=== PATIENT | male | born 1990 | race Caucasian/White ===

== ENCOUNTER 2018-04-03 02:35 | Emergency (ER) | payer OTHER ==
[2018-04-03 02:40] VITALS: BP 127/77
[2018-04-03] MEDS ORDERED: DEXAMETHASONE 4 MG TAB PO ONE (02:49)
--- NOTE | 2018-04-03 02:52 | EDPHY ---
H & P Stated Complaint: dx with strep throat and now throat is worst and feels swollen Time Seen by Provider: 04/03/18 02:48 HPI/ROS: Chief Complaint: Sore throat HPI: 20-year-old male had 2 weeks of sore throat. Two weeks ago he was seen at urgent care and was diagnosed with strep throat from a swab. He completed a course of azithromycin. Patient continued of sore throat sober days ago he was seen in urgent care in [place]. They gave him Augmentin. He took a single dose was vomiting all night. He was seen the following day and started on clindamycin. He has been taking for the last 2 days. This morning he woke up with the sensation that his throat felt more inflamed and felt like his throat was a little bit swollen. He took Benadryl and ibuprofen. No fevers or chills. No cough. No ear pain. No difficulty swallowing. No change in his voice. No trismus. ROS: 10 systems were reviewed and were negative except those elements noted in the HPI. PMH: Denies Social History: No smoking Family History: non-contributory Physical Exam: Gen: Awake, Alert, No Distress, voice is normal HEENT: Nose: no rhinorrhea Eyes: PERRLA, EOMI Mouth: Moist mucosa oropharynx has mild generalized erythema, there is no exudate, there is no edema, there is no peritonsillar swelling. Uvula is normal and midline. No submandibular swelling. Neck: Supple, no JVD, no lymphadenopathy, no fullness or masses. Chest: nontender, lungs clear to auscultation Heart: S1, S2 normal, no murmur Abd: Soft, non-tender, no guarding Back: no CVA tenderness, no midline tenderness Ext: no edema, non-tender Skin: no rash Neuro: CN II-XII intact, Sensation grossly intact, Strength 5/5 in bilateral upper and lower extremities - Personal History Current Tetanus/Diphtheria Vaccine: Yes Current Tetanus Diphtheria and Acellular Pertussis (TDAP): Yes - Medical/Surgical History Hx Asthma: No Hx Chronic Respiratory Disease: No Hx Diabetes: No Hx Cardiac Disease: No Hx Renal Disease: No Hx Cirrhosis: No Hx Alcoholism: No Hx HIV/AIDS: No Hx Splenectomy or Spleen Trauma: No - Social History Smoking Status: Never smoked Constitutional: Initial Vital Signs Temperature (C) 36.7 C 04/03/18 02:37 Heart Rate 77 04/03/18 02:37 Respiratory Rate 16 04/03/18 02:37 Blood Pressure 127/77 H 04/03/18 02:37 O2 Sat (%) 98 04/03/18 02:37 O2 Delivery Mode Room Air Allergies/Adverse Reactions: amoxicillin [From Augmentin] Allergy (Verified 04/03/18 02:40) clavulanic acid [From Augmentin] Allergy (Verified 04/03/18 02:40) Home Medications: Medication Instructions Recorded Clindamycin 04/03/18 Medical Decision Making ED Course/Re-evaluation: 28-year-old male with symptoms consistent with a mild pharyngitis. There is no evidence clinically of peritonsillar abscess, submandibular abscess or Aaron's angina. There is no angioedema or findings suggestive of acute allergic reaction. Will give him some Decadron now and reassess. Departure - Departure Disposition: Home, Routine, Self-Care Clinical Impression: Acute pharyngitis Condition: Good Instructions: Pharyngitis (ED) Additional Instructions: Alternate acetaminophen (1000 mg) with ibuprofen (400 mg) every 4 hours as needed for fevers, chills, aches or pain. Referrals: Delmis Villalobos MD [Medical Doctor] - As per Instructions
== END 2018-04-03 03:27 | disposition home or self-care (01) ==
DX: J02.9 Acute pharyngitis, unspecified (principal)